=== PATIENT | male | born 1965 ===

== ENCOUNTER → 2021-10-08 | Outpatient (CLI) | payer OTHER ==
[~2021-10-08] MED LIST: CHOL10002 PO; HYDACE5 PO; ONDA4 PO; OXYACE5T PO; TAMS.4ER PO
[2021-10-16 08:10] LABS: HSV-1 DNA Negative (Negative); HSV-2 DNA Negative (Negative)
== END | disposition home or self-care (01) ==
LOC: LAB 16:16 → LAB SHORT 16:16
PROVIDERS: Physician Assistant Medical
DX: L08.9 Local infection of the skin and subcutaneous tissue, unspecified (principal)
CPT/HCPCS: 87529; 87798

== ENCOUNTER 2022-11-16 08:00 | Day surgery (SDC) | payer OTHER ==
[~2022-11-16] VITALS: Ht 175.3 cm; Wt 91.7 kg
[2022-11-16] MEDS ORDERED: ZOLP10 PO (08:31)
[2022-11-16] MEDS ORDERED: Prinivil10 MG PO (08:31)
--- NOTE | 2022-11-16 09:49 | NUR ---
11/16/22 0949 Melonie Juarez LIDOCAINE 2% WITH EPI 1:100,000 DILUTED 1:1 WITH NORMAL SALINE TO MAKE LIDOCAINE 1% WITH EPI 1:200,000 FOR INJECTION AT THE OPSITE BY DR CRENSHAW. 4ML OF EPI (1MG/ML) USED TO SOAK GELFOAM FOR PACKING AT THE OPSITE BY DR CRENSHAW.
--- NOTE | 2022-11-16 13:38 | NUR ---
11/16/22 1338 Shanita Camacho OXYGEN SATURATION MAINTAINING 91-95% DROPPING TO 88-90% FOR BRIEF PERIOD. SPONTANEOUSLY RETURN TO GREATER THAN 92%. PATIENT DENIES SOB. DR. NEWMAN CONSULTED AND APPROVED DC IN CURRENT CONDITION. PATIENT GIVEN INCENTIVE SPIROMETER AND INSRUCTED TO USE.
[2022-11-16 14:47] VITALS: BP 165/106
== END 2022-11-16 15:03 | disposition home or self-care (01) ==
LOC: ORSCSDS 08:00
PROVIDERS: Otolaryngology
PROC: 09U807Z Supplement Left Tympanic Membrane with Autologous Tissue Substitute, Open Approach (ICD-10-PCS; principal; 2022-11-16 09:30)
DX: H72.92 Unspecified perforation of tympanic membrane, left ear (principal); H69.83 Other specified disorders of Eustachian tube, bilateral; I10 Essential (primary) hypertension; Z79.899 Other long term (current) drug therapy
CPT/HCPCS: A9270; J0171; J1100; J2250; J2405; J2704; J3010; J7120

== ENCOUNTER 2023-08-25 06:27 | Day surgery (SDC) | payer OTHER ==
[~2023-08-25] VITALS: Ht 175.3 cm; Wt 93.5 kg
[~2023-08-25 06:27] MED LIST changes: +Lactated Ringer's 1,000 ML IV ONE; +Prinivil10 MG PO; +ZOLP10 PO
[2023-08-25] MEDS ORDERED: Lidocaine HCl 4% 5 ML SDA ONE (07:08)
[2023-08-25] MEDS ORDERED: Lidocaine 1%-Epineph 1:100000 20 ML MDV ONE (07:08)
[2023-08-25] MEDS ORDERED: EPINEPhrine HCl 1 MG / ML 30ML Vial ONE (07:08)
[2023-08-25] MEDS ORDERED: Lactated Ringer's 1,000 ML IV ONE ×2 (07:21→10:15)
[2023-08-25] MEDS ORDERED: propofoL 20 ML IV ONE (07:27)
[2023-08-25] MEDS ORDERED: FentaNYL Citrate 50 MCG/ML 2 ML Injection ONE ×2 (07:27→11:30)
[2023-08-25] MEDS ORDERED: Ciprofloxacin 0.3% Opth Soln 2.5 ML BTL ONE (07:27)
[2023-08-25] MEDS ORDERED: Midazolam HCl 1MG / ML 2ML Vial ONE (07:27)
[2023-08-25] MEDS ORDERED: Rocuronium Bromide 10 MG/ML 5ML Injection IV ONE ×2 (07:28→08:37)
[2023-08-25] MEDS ORDERED: Ondansetron HCl 2 MG / ML 2ML Vial ONE (07:58)
[2023-08-25] MEDS ORDERED: Dexamethasone Sod Phos 10 MG/ML 1ML VIAL ONE (07:58)
[2023-08-25] MEDS ORDERED: Triamcinolone Inj Susp 40 MG / ML 1ML Vial ONE (08:07)
--- NOTE | 2023-08-25 08:28 | NUR ---
08/25/23 0828 Melonie Juarez 1ML OF CIPROFLOXACIN 0.3% DROPS MIXED WITH 1ML OF TRIAMCINALONE (40MG/ML) FOR USE AT [facility] BY DR CRENSHAW.
[2023-08-25] MEDS ORDERED: Sugammadex Sodium 200 MG/2ML SDV (100 MG/ML) ONE (09:39)
[2023-08-25] MEDS ORDERED: Phenylephrine HCl 100 MCG/ML-NS 10MLSYR (1MG/10ML) ONE (09:39)
[2023-08-25 11:45] VITALS: BP 147/99
[2023-08-25] MEDS ORDERED: OxyCODONE HCL 5 MG TAB ONE ×2 (11:55→12:46)
--- NOTE | 2023-08-25 14:10 | NUR ---
08/25/23 1410 Shanita Camacho SPOKE WITH PATIENT ABOUT JOSH AND IF HE HAD BEEN DIAGNOSED IN THE PAST. THE PATIENT HAD NOT BEEN DIAGNOSED WITH JOSH BUT WANTS THE PATIENT TO FOLLOW UP WITH A SLEEP STUDY TO CONFIRM A JOSH DIAGNOSIS. WILL FOLLOW WITH PATIENT IN HIS OFFICE FOR A REFERAL TO A SLEEP SPECIALIST. INCENTIVE SPIROMETER WAS SENT HOME WITH THE PATIENT AND HE DEMONSTATED PROPER USE OF THE INCENTIVE SPIROMETER. PATIENT WAS INSTRUCTED TO USE IT 10X Q1 HOUR UNTIL NORMAL ACTIVITY RESUMES.
== END 2023-08-25 13:30 | disposition home or self-care (01) ==
LOC: ORSCSDS 06:27
PROVIDERS: Otolaryngology
PROC: 097G8ZZ Dilation of Left Eustachian Tube, Via Natural or Artificial Opening Endoscopic (ICD-10-PCS; principal; 2023-08-25 07:30)
PROC: 097F8ZZ Dilation of Right Eustachian Tube, Via Natural or Artificial Opening Endoscopic (ICD-10-PCS; principal; 2023-08-25 07:30)
PROC: 09U777Z Supplement Right Tympanic Membrane with Autologous Tissue Substitute, Via Natural or Artificial Opening (ICD-10-PCS; principal; 2023-08-25 07:30)
DX: H69.93 Unspecified Eustachian tube disorder, bilateral (principal); H72.91 Unspecified perforation of tympanic membrane, right ear; H90.6 Mixed conductive and sensorineural hearing loss, bilateral; I10 Essential (primary) hypertension; G47.33 Obstructive sleep apnea (adult) (pediatric); Z79.899 Other long term (current) drug therapy
CPT/HCPCS: A9270; C1726; J0171; J1100; J2001; J2250; J2371; J2405; J2704; J3010; J3301; J7120